=== PATIENT | female | born 1995 | race Asian ===

== ENCOUNTER 2022-03-01 07:08 | Day surgery (SDC) | payer BC ==
[2022-02-28 15:43] VITALS: BMI 20.3
[2022-03-01] MEDS ORDERED: Lidocaine 1% PF 5 ML VIAL ONE (09:00)
[2022-03-01] MEDS ORDERED: PROPOFOL 200 MG/20 ML VIAL ONE (09:00)
== END 2022-03-01 10:00 | disposition home or self-care (01) ==
LOC: SDC 07:08
PROVIDERS: ATTEND Internal Medicine Gastroenterology
PROC: 0DB98ZX Excision of Duodenum, Via Natural or Artificial Opening Endoscopic, Diagnostic (ICD-10-PCS; principal; 2022-03-01)
PROC: 0DB68ZX Excision of Stomach, Via Natural or Artificial Opening Endoscopic, Diagnostic (ICD-10-PCS; principal; 2022-03-01)
DX: K30 Functional dyspepsia (principal); Z79.899 Other long term (current) drug therapy; Z88.8 Allergy status to other drugs, medicaments and biological substances
CPT/HCPCS: 88305; J2704